=== PATIENT | male | born 1985 | race Caucasian/White ===

== ENCOUNTER 2019-02-17 13:24 | Emergency (ER) | payer OTHER ==
[~2019-02-17 13:24] MED LIST: ACET500 PO; ALBU90OI INH; AZIT250 PO; Amoxicillin500 MG PO; Benadryl Itch28.3 G1 TP; CEPH500 PO; CODACE30 PO; CRUTCH2 USE; CYCL10 PO; Cleocin HCl300 MG PO; DIAZ5 PO; HYDACE10B PO; HYDACE5 PO; HYDACE5325 PO; HYDR1TAB94 PO; IBUP800 PO; INSULANI; KETO10 PO; Keflex500 MG PO; NAPR500 PO; Norco 5-325 Ta1 EACH PO; OXYACE5T PO; PRED20 PO; Prednisone20 MG PO; RXOXYACE PO; SULTRIDS PO; VARE1 PO
== END 2019-02-17 13:30 | disposition left against medical advice (07) ==
LOC: ER 13:24
DX: Z53.21 Procedure and treatment not carried out due to patient leaving prior to being seen by health care provider (principal)

== ENCOUNTER 2019-03-17 17:23 | Emergency (ER) | payer OTHER | END 2019-03-17 17:49 | disposition left against medical advice (07) | LOC: ER 17:23 | DX: Z53.21 Procedure and treatment not carried out due to patient leaving prior to being seen by health care provider (principal) ==

== ENCOUNTER 2019-12-02 05:10 | Emergency (ER) | payer OTHER ==
[~2019-12-02] VITALS: Ht 157.5 cm; Wt 97.5 kg
== END 2019-12-02 06:08 | disposition left against medical advice (07) ==
LOC: ER 05:10
DX: Z53.21 Procedure and treatment not carried out due to patient leaving prior to being seen by health care provider (principal)

== ENCOUNTER 2020-12-20 12:35 | Emergency (ER) | payer OTHER ==
[~2020-12-20] VITALS: Ht 177.8 cm; Wt 99.8 kg
[2020-12-20 13:18] LABS: BASOPHILS ABSOLUTE AUTO 0.02 K/mm3 (0.00-0.23); BASOPHILS PERCENT AUTO 0 % (0-2); EOSINOPHILS ABSOLUTE AUTO 0.01 K/mm3 (0.00-0.68); EOSINOPHILS PERCENT AUTO 0 % (0-6); Hematocrit 43.1 % (37.0-53.0); IMMATURE GRAN ABSOLUTE AUTO 0.07 K/mm3 (0.00-0.10); IMMATURE GRAN PERCENT AUTO 2 % (0-1); LYMPHOCYTES ABSOLUTE AUTO 1.46 K/mm3 (0.84-5.20); LYMPHOCYTES PERCENT AUTO 32 % (21-46); MONOCYTES ABSOLUTE AUTO 0.59 K/mm3 (0.16-1.47); MONOCYTES PERCENT AUTO 13 % (4-13); Mean Corpuscular HGB 38.2 pg (26.0-34.0); Mean Corpuscular HGB Conc 34.8 g/dL (31.5-36.5); Mean Corpuscular Volume 110 fL (80-100); Mean Platelet Volume 10.9 fL (9.1-12.4); NEUTROPHILS ABSOLUTE AUTO 2.35 K/mm3 (1.96-9.15); NEUTROPHILS PERCENT AUTO 52 % (41-73); Platelet Count 189 K/mm3 (150-400); RDW Coefficient Variation 13.9 % (11.7-14.2); RDW Standard Deviation 57.5 fL (35.1-46.3); Red Blood Cell Count 3.93 M/mm3 (4.30-5.90)
[2020-12-20 13:29] LABS: Alanine Aminotransfer (ALT/SGP 25 U/L (12-78); Albumin, Blood 3.7 g/dL (3.4-5.0); Alk Phos 56 U/L (50-136); Anion Gap 3 mmol/L (6-16); Aspartate Aminotrans (AST/SGOT 16 U/L (12-37); Bilirubin, Total 0.4 mg/dL (0.1-1.0); Blood Urea Nitrogen 18 mg/dL (8-24); Bun/Creatinine Ratio 22.4 (12.0-20.0); CO2, Blood 28 mmol/L (21-32); Calcium, Blood 8.8 mg/dL (8.5-10.1); Chloride, Blood 108 mmol/L (98-108); Globulin, Blood 3.8 g/dL (2.2-4.0); Glomerular Filtration Rate >60 (60-); Glucose, Blood 115 mg/dL (70-99); Potassium, Blood 3.9 mmol/L (3.5-5.5); Sodium, Blood 139 mmol/L (136-145); Total Protein, Blood 7.5 g/dL (6.4-8.2); Troponin I <0.015 ng/mL (0.000-0.040)
== END 2020-12-20 14:45 | disposition home or self-care (01) ==
LOC: ER 12:35
PROVIDERS: Emergency Medicine
DX: R07.9 Chest pain, unspecified (principal); F17.210 Nicotine dependence, cigarettes, uncomplicated
CPT/HCPCS: 36415; 71046; 80053; 83880; 84484; 85025; 93005; 93010; 99285-25

== ENCOUNTER 2023-10-15 17:51 | Emergency (ER) | payer OTHER ==
[~2023-10-15] VITALS: Ht 157.5 cm; Wt 104.3 kg
[2023-10-15 17:52] VITALS: BP 128/59
== END 2023-10-15 20:14 | disposition left against medical advice (07) ==
LOC: ER 17:51
DX: R07.9 Chest pain, unspecified (principal); Z53.29 Procedure and treatment not carried out because of patient's decision for other reasons
CPT/HCPCS: 93005; 93010; 99281-25

== ENCOUNTER 2024-10-13 23:04 | Emergency (ER) | payer SELFPAY ==
[~2024-10-13] VITALS: Ht 177.8 cm; Wt 99.8 kg
[2024-10-13 23:32] VITALS: BP 107/80
== END 2024-10-14 04:45 | disposition left against medical advice (07) ==
LOC: ER 23:04
DX: M25.561 Pain in right knee (principal); Z53.29 Procedure and treatment not carried out because of patient's decision for other reasons
CPT/HCPCS: 73560-RT

== ENCOUNTER 2025-02-22 16:58 | Emergency (ER) | payer SELFPAY ==
[~2025-02-22] VITALS: Ht 177.8 cm; Wt 102.1 kg
[2025-02-22 18:11] LABS: BASOPHILS ABSOLUTE AUTO 0.03 K/mm3 (0.00-0.23); BASOPHILS PERCENT AUTO 1 % (0-2); EOSINOPHILS ABSOLUTE AUTO 0.01 K/mm3 (0.00-0.68); EOSINOPHILS PERCENT AUTO 0 % (0-6); Hematocrit 45.7 % (37.0-53.0); Hemoglobin 15.9 g/dL (13.5-17.5); IMMATURE GRAN ABSOLUTE AUTO 0.13 K/mm3 (0.00-0.10); IMMATURE GRAN PERCENT AUTO 2 % (0-1); LYMPHOCYTES ABSOLUTE AUTO 2.13 K/mm3 (0.84-5.20); LYMPHOCYTES PERCENT AUTO 36 % (21-46); MONOCYTES ABSOLUTE AUTO 0.81 K/mm3 (0.16-1.47); MONOCYTES PERCENT AUTO 14 % (4-13); Mean Corpuscular HGB Conc 34.8 g/dL (31.5-36.5); Mean Corpuscular Volume 110 fL (80-100); NEUTROPHILS ABSOLUTE AUTO 2.79 K/mm3 (1.96-9.15); NEUTROPHILS PERCENT AUTO 47 % (41-73); NRBC ABSOLUTE 0.00 K/mm3 (0.00-0.02); NRBC Auto 0.0 /100 WBC (0.0-0.2); Platelet Count 247 K/mm3 (150-400); RDW Coefficient Variation 13.8 % (11.7-14.2); RDW Standard Deviation 56.4 fL (35.1-46.3)
[2025-02-22 18:32] LABS: CORONAVIRUS COVID-19 AG Negative (NEGATIVE)
[2025-02-22 19:08] LABS: Alanine Aminotransfer (ALT/SGP 32.0 U/L (12-78); Albumin, Blood 4.1 g/dL (3.4-5.0); Albumin/Globulin Ratio 1.1 (0.8-1.8); Anion Gap 9.0 mmol/L (3-11); Aspartate Aminotrans (AST/SGOT 23.0 U/L (12-37); Bilirubin, Total 0.6 mg/dL (0.1-1.0); Blood Urea Nitrogen 17.0 mg/dL (8-24); CO2, Blood 26.0 mmol/L (21-32); Calcium, Blood 9.0 mg/dL (8.5-10.1); Chloride, Blood 106.0 mmol/L (98-108); Creatinine, Blood 0.8 mg/dL (0.60-1.20); Globulin, Blood 3.9 g/dL (2.2-4.0); Glucose, Blood 108.0 mg/dL (70-99); Potassium, Blood 3.8 mmol/L (3.5-5.5); Sodium, Blood 137.0 mmol/L (136-145); Total Protein, Blood 8.0 g/dL (6.4-8.2)
[2025-02-22 20:18] LABS: Source, Urine Clean Catch
[2025-02-22 20:27] LABS: Bilirubin, Urine Neg (Neg); Glucose Qualitative, Urine Neg (Neg); Ketones, Urine Neg (Neg); Leukocyte Esterase, Urine Neg (Neg); Protein, Urine 1+ (Neg); Specific Gravity, Urine 1.015 (1.003-1.022); Urobilinogen, Urine NORM (Normal)
[2025-02-22 20:47] LABS: Color, Urine Yellow (P-Yellow)
[2025-02-22] MEDS ORDERED: Ketorolac Tromethamine 15mg Vial IV ONE (21:20)
[2025-02-22] MEDS ORDERED: Ondansetron HCl 2 MG / ML 2ML Vial IV ONE (21:20)
[2025-02-22] MEDS ORDERED: NS 1,000 ML IV SCH (21:20)
[2025-02-22] MEDS ORDERED: Ondansetron 4 MG SoluTab SL ONE (21:35)
[2025-02-22 21:38] VITALS: BP 121/85
[2025-02-22] MEDS ORDERED: RX Prepack 2 Tabs Ondansetron ODT 4MG UD ONE (21:40)
== END 2025-02-22 21:47 | disposition home or self-care (01) ==
LOC: ER 16:58
PROVIDERS: Student in an Organized Health Care Education/Training Program
DX: A08.4 Viral intestinal infection, unspecified (principal); R07.89 Other chest pain; K59.00 Constipation, unspecified; F17.210 Nicotine dependence, cigarettes, uncomplicated
CPT/HCPCS: 36415; 71045; 74018; 80053; 84484; 85025; 87428-QW; 93005; 93010; 96361; 96374; 96375; 99285-25; A9270; J1885; J2405; J7030